=== PATIENT | female | born 1990 | race Caucasian/White ===

== ENCOUNTER → 2024-09-16 09:19 | Outpatient (REF) | payer BC, SELFPAY | LOC: PNTC 09:19 | PROVIDERS: ATTENDING PHYSICIAN Obstetrics & Gynecology | DX: Z34.92 Encounter for supervision of normal pregnancy, unspecified, second trimester (principal) | CPT/HCPCS: 36415; 86850; 86900; 86901; 96372; J2790 ==

== ENCOUNTER → 2024-12-16 11:27 | Outpatient (REF) | payer BC, SELFPAY | LOC: PNTC 11:27 | PROVIDERS: ATTENDING PHYSICIAN Student in an Organized Health Care Education/Training Program | DX: O48.0 Post-term pregnancy (principal) | CPT/HCPCS: 59025; 76815 ==

== ENCOUNTER 2024-12-19 00:53 | Inpatient (IN) | payer BC, SELFPAY ==
[2024-12-19] MEDS: LR 1000 IV (01:10)
[2024-12-19 01:14] VITALS: BP 111/52; BMI 33.5
[2024-12-19 01:35] LABS: % Basophils 0.4 % (0-2); % Eosinophils 0.3 % (0-6); % Immature Granulocytes 0.4 % (0-0.5); % Lymphocytes 23.9 % (20.5-51.1); % Monocytes 6.2 % (1.7-9.3); % Neutrophils 68.8 % (42.2-75.2); Absolute Basophils 0.1 10^3/uL (0-0.2); Absolute Immature Granulocytes 0.1 10^3/uL (0-0.05); Absolute Lymphocytes 3.4 10^3/uL (1.2-3.4); Absolute Monocytes 0.9 10^3/uL (0.1-0.6); Absolute Neutrophils 9.7 10^3/uL (1.4-6.5); Hematocrit 40.3 % (37.0-47.0); Hemoglobin 13.7 g/dL (12.0-16.0); Mean Corpuscular Hgb 30.1 pg (27.0-31.0); Mean Corpuscular Volume 88.6 fL (81.0-99.0); Mean Platelet Volume 11.5 fL (7.4-10.4); Nucleated Red Blood Cells % 0 %; Platelet Count 184 10^3/uL (130-400); Red Blood Cell Count 4.55 10^6/uL (4.20-5.40); Red Cell Dist. Width 13.6 % (11.5-14.5); White Blood Cell Count 14.1 10^3/uL (4.8-10.8)
[2024-12-19] MEDS: SUBLIMAZE 100 MCG EPIDURAL (01:52)
[2024-12-19] MEDS: PENICILLIN 110 UNITS IV (01:52)
[2024-12-19] MEDS: FENTANYL/BUPIVACAINE 100 EPIDURAL ×2 (01:56→10:55)
[2024-12-19] MEDS: PENICILLIN 55 UNITS IV ×2 (07:59→11:58)
[2024-12-19] MEDS: PITOCIN 30 UNITS/NSS 500 ML IV (10:59)
[2024-12-19] MEDS: MOTRIN 600 MG PO ×2 (14:50→21:24)
[2024-12-20 05:05] LABS: Hematocrit 33.5 % (37.0-47.0); Hemoglobin 11.2 g/dL (12.0-16.0)
[2024-12-20] MEDS: PRENATAL PLUS 1 TABLET PO (08:17)
[2024-12-20] MEDS: SENOKOT-S 1 TABLET PO (08:23)
[2024-12-20] MEDS: MOTRIN 600 MG PO ×3 (08:23→21:16)
[2024-12-21] MEDS: TYLENOL 650 MG PO (01:31)
[2024-12-21] MEDS: MOTRIN 600 MG PO (08:18)
[2024-12-21] MEDS: SENOKOT-S 1 TABLET PO (08:19)
[2024-12-21] MEDS: PRENATAL PLUS 1 TABLET PO (08:19)
[2024-12-23 14:06] LABS: Syphilis/T. pallidum Ab Reflex Negative (Negative)
== END 2024-12-21 12:30 | disposition home or self-care (01) | DRG 807 ==
LOC: LDRP 00:53
PROVIDERS: Student in an Organized Health Care Education/Training Program; ADMITTING PHYSICIAN Pediatrics; ATTENDING PHYSICIAN Obstetrics & Gynecology; FAMILY PHYSICIAN Family Medicine
PROC: 10E0XZZ Delivery of Products of Conception, External Approach (ICD-10-PCS; 2024-12-19)
PROC: 10907ZC Drainage of Amniotic Fluid, Therapeutic from Products of Conception, Via Natural or Artificial Opening (ICD-10-PCS; 2024-12-19)
DX: O99.824 Streptococcus B carrier state complicating childbirth (principal); Z37.0 Single live birth; Z3A.41 41 weeks gestation of pregnancy; O70.0 First degree perineal laceration during delivery; O69.81X0 Labor and delivery complicated by cord around neck, without compression, not applicable or unspecified
CPT/HCPCS: 36415; 85014; 85018; 85025; 86780; 86850; 86900; 86901